=== PATIENT | female | born 1970 | race Hispanic/Latino ===

== ENCOUNTER 2018-02-06 06:03 | Day surgery (SDC) | payer MEDICAID, MEDICARE ==
[~2018-02-06] VITALS: Ht 157.5 cm; Wt 83.9 kg
[2018-02-06 06:44] VITALS: BP 120/74
[2018-02-06] MEDS ORDERED: LEFL10TA15 PO (07:14)
[2018-02-06] MEDS ORDERED: FOLI1TAB15 PO (07:14)
[2018-02-06] MEDS ORDERED: ESOM40CA PO (07:14)
[2018-02-06] MEDS ORDERED: METH25VI11 IJ (07:14)
[2018-02-06] MEDS ORDERED: TRAM50TA4 PO (07:14)
[2018-02-06] MEDS ORDERED: TYL3 PO (07:14)
[2018-02-06] MEDS ORDERED: GABA-529 PO (07:14)
[2018-02-06] MEDS ORDERED: ATEN50TA PO (07:14)
== END 2018-02-06 08:20 ==
LOC: ENDO 06:03 → DAH 06:03 → ENDO 08:20
PROVIDERS: ATTEND Internal Medicine Gastroenterology
DX: K80.50 Calculus of bile duct without cholangitis or cholecystitis without obstruction (principal); I10 Essential (primary) hypertension; Z86.73 Personal history of transient ischemic attack (TIA), and cerebral infarction without residual deficits; M06.9 Rheumatoid arthritis, unspecified; Z90.49 Acquired absence of other specified parts of digestive tract; Z90.710 Acquired absence of both cervix and uterus; Z98.890 Other specified postprocedural states; Z79.899 Other long term (current) drug therapy
CPT/HCPCS: 43259; A4606; 43231

== ENCOUNTER 2018-02-27 05:30 | Day surgery (SDC) | payer MEDICAID ==
[~2018-02-27] VITALS: Ht 157.5 cm; Wt 83.4 kg
[~2018-02-27 05:30] MED LIST: ATEN50TA PO; ESOM40CA PO; FOLI1TAB15 PO; GABA-529 PO; LEFL10TA15 PO; METH25VI11 IJ; TRAM50TA4 PO; TYL3 PO
[2018-02-27] MEDS ORDERED: SODIUM CHLORIDE 0.9% 1000ML 1,000 ML IV ONE (05:47)
[2018-02-27] MEDS ORDERED: ISOVUE-370 50ML VIAL IV ONE (07:27)
[2018-02-27 07:40] VITALS: BP 127/80
[2018-02-27] MEDS ORDERED: MIDAZOLAM HCL 1 MG/ML 2ML VIAL ONE (07:59)
[2018-02-27] MEDS ORDERED: FENTANYL CITRATE PF 50 MCG/1 ML 2ML VIAL ONE (07:59)
[2018-02-27] MEDS ORDERED: INDOMETHACIN 50 MG SUPP.RECT RC SCH (08:30)
== END 2018-02-27 09:40 | disposition home or self-care (01) ==
LOC: ENDO 05:30 → DAH 05:30 → ENDO 09:40
PROVIDERS: ATTEND Internal Medicine Gastroenterology
DX: K80.50 Calculus of bile duct without cholangitis or cholecystitis without obstruction (principal); Z79.899 Other long term (current) drug therapy; I10 Essential (primary) hypertension; Z86.73 Personal history of transient ischemic attack (TIA), and cerebral infarction without residual deficits; M06.9 Rheumatoid arthritis, unspecified; E07.9 Disorder of thyroid, unspecified; Z68.34 Body mass index [BMI] 34.0-34.9, adult; Z90.49 Acquired absence of other specified parts of digestive tract; Z90.710 Acquired absence of both cervix and uterus; Z98.890 Other specified postprocedural states; K59.09 Other constipation
CPT/HCPCS: 43262; 43264; 74330; A4606; C1769; C1773; J2250; J3010; J7030; Q9967

== ENCOUNTER 2018-02-28 16:33 | Inpatient (IN) | payer MEDICAID ==
[~2018-02-28] VITALS: Ht 157.5 cm; Wt 83.5 kg
[~2018-02-28 16:33] MED LIST changes: -GABA-529 PO; -LEFL10TA15 PO; -TRAM50TA4 PO; -TYL3 PO
[2018-02-28 17:33] LABS: BASOPHILS % (AUTO) 0.4 % (0.0-5.0); EOSINOPHILS % (AUTO) 1.9 % (0.0-8.0); HEMATOCRIT 32.4 % (36-48); LYMPHOCYTES % (AUTO) 17.2 % (21.0-51.0); MEAN CORPUSCULAR HGB CONC 33.8 g/dL (32.0-36.0); MEAN CORPUSCULAR VOLUME 91.7 fL (79-99); MONOCYTES % (AUTO) 7.7 % (3.0-13.0); NEUTROPHILS % (AUTO) 72.8 % (40.0-77.0); PLATELET COUNT (AUTO) 280 K/uL (130-400); RED BLOOD CELL COUNT(AUTO) 3.54 MIL/uL (4.00-5.50); RED CELL DISTRIBUTION WIDTH 14.1 % (11.0-15.5); WHITE BLOOD COUNT (AUTO) 8.8 K/uL (4.8-10.8)
[2018-02-28 17:45] LABS: CREATININE 0.6 mg/dL (0.5-1.5); INR 0.92 (0.85-1.15); PARTIAL THROMBOPLASTIN TIME 28.1 SEC (26.3-35.5); POTASSIUM 4.2 mmol/L (3.5-5.1); PROTHROMBIN TIME 9.7 SEC (9.6-11.6)
[2018-02-28 17:50] LABS: ALBUMIN 3.1 g/dL (3.5-5.0); BILIRUBIN,TOTAL 0.3 mg/dL (0.2-1.0); TOTAL PROTEIN, SERUM 7.5 g/dL (6.0-8.3)
[2018-02-28] MEDS ORDERED: DIAZEPAM 5 MG TABLET ONE (18:18)
[2018-02-28] MEDS ORDERED: SODIUM CHLORIDE 0.9% 1000ML 2,000 ML IV ONE (18:57)
[2018-02-28] MEDS ORDERED: MORPHINE SULFATE 4 MG/1ML SYG ONE ×2 (18:57→23:33)
[2018-02-28] MEDS ORDERED: ONDANSETRON HCL MDV 20ML 2 MG/ML VIAL ONE (18:57)
[2018-02-28 19:08] LABS: CREATINE KINASE MB < 0.5 ng/mL (0.5-3.6); CREATINE KINASE, TOTAL 64 U/L (21-232)
[2018-03-01] MEDS ORDERED: ONDANSETRON HCL MDV 20ML 2 MG/ML VIAL ONE (01:48)
[2018-03-01 06:42] LABS: CHOLESTEROL 128 mg/dL (<200); HDL CHOLESTEROL 59 mg/dL (35-85); LDL DIRECT 61 mg/dL (0-99); TRIGLYCERIDES 33 mg/dL (30-200)
[2018-03-01] MEDS ORDERED: ACETAMINOPHEN 325 MG TAB ONE (10:35)
[2018-03-01] MEDS ORDERED: SODIUM CHLORIDE 0.9% 1000ML 1,000 ML IV ONE (11:27)
[2018-03-01] MEDS ORDERED: MORPHINE SULFATE 4 MG/1ML SYG ONE (12:46)
[2018-03-01 19:52] VITALS: BP 137/69
[2018-03-01] MEDS: MORPHINE SULFATE 4 MG/1ML SYG IVP PRN (20:54)
[2018-03-01] MEDS: SODIUM CHLORIDE 0.9% 1000ML 1,000 ML IV SCH (20:58)
[2018-03-01] MEDS ORDERED: ONDANSETRON HCL 4 MG/2 ML VIAL IVP PRN (21:00)
[2018-03-01] MEDS ORDERED: GABA-529 PO (22:22)
[2018-03-01] MEDS ORDERED: ERGO500014 PO (22:22)
[2018-03-01] MEDS ORDERED: LEFL10TA15 PO (22:22)
[2018-03-01] MEDS ORDERED: METH25VI17 SQ (22:37)
[2018-03-01 23:25] VITALS: BP 118/67
[2018-03-01] MEDS ORDERED: FAMOTIDINE/PF 20 MG/2 ML VIAL IV ONE (23:54)
[2018-03-02] MEDS: SODIUM CHLORIDE 0.9% 1000ML 1,000 ML IV SCH ×3 (00:46→13:15)
[2018-03-02 03:30] VITALS: BP 129/68
[2018-03-02 05:28] LABS: BASOPHILS % (AUTO) 0.4 % (0.0-5.0); EOSINOPHILS % (AUTO) 3.3 % (0.0-8.0); HEMATOCRIT 29.1 % (36-48); LYMPHOCYTES % (AUTO) 26.8 % (21.0-51.0); MEAN CORPUSCULAR HEMOGLOBIN 31.6 pg (27.0-33.0); MEAN CORPUSCULAR HGB CONC 34.8 g/dL (32.0-36.0); MEAN CORPUSCULAR VOLUME 90.8 fL (79-99); MONOCYTES % (AUTO) 7.7 % (3.0-13.0); NEUTROPHILS % (AUTO) 61.8 % (40.0-77.0); PLATELET COUNT (AUTO) 255 K/uL (130-400); RED BLOOD CELL COUNT(AUTO) 3.21 MIL/uL (4.00-5.50); RED CELL DISTRIBUTION WIDTH 14.1 % (11.0-15.5); WHITE BLOOD COUNT (AUTO) 6.5 K/uL (4.8-10.8)
[2018-03-02 05:45] LABS: CREATININE 0.5 mg/dL (0.5-1.5); MAGNESIUM 1.9 mg/dL (1.80-2.40)
[2018-03-02 07:54] VITALS: BP 130/73
[2018-03-02] MEDS ORDERED: PANTOPRAZOLE SODIUM 40 MG TABLET.DR PO SCH (09:00)
[2018-03-02] MEDS ORDERED: FAMOTIDINE/PF 20 MG/2 ML VIAL IV SCH (09:00)
[2018-03-02 12:11] VITALS: BP 138/76
[2018-03-02] MEDS: MORPHINE SULFATE 4 MG/1ML SYG IVP PRN (13:10)
[2018-03-02 16:14] VITALS: BP 139/67
[2018-03-02 19:40] VITALS: BP 136/71
[2018-03-02] MEDS: FAMOTIDINE/PF 20 MG/2 ML VIAL IV SCH (21:33)
[2018-03-03 00:10] VITALS: BP 152/79
[2018-03-03 03:15] VITALS: BP 152/70
[2018-03-03 05:05] LABS: BASOPHILS % (AUTO) 0.5 % (0.0-5.0); EOSINOPHILS % (AUTO) 2.4 % (0.0-8.0); HEMATOCRIT 32.3 % (36-48); LYMPHOCYTES % (AUTO) 24.5 % (21.0-51.0); MEAN CORPUSCULAR HEMOGLOBIN 30.4 pg (27.0-33.0); MEAN CORPUSCULAR HGB CONC 33.6 g/dL (32.0-36.0); MEAN CORPUSCULAR VOLUME 90.4 fL (79-99); MONOCYTES % (AUTO) 8.8 % (3.0-13.0); NEUTROPHILS % (AUTO) 63.8 % (40.0-77.0); PLATELET COUNT (AUTO) 277 K/uL (130-400); RED BLOOD CELL COUNT(AUTO) 3.57 MIL/uL (4.00-5.50); RED CELL DISTRIBUTION WIDTH 13.8 % (11.0-15.5); WHITE BLOOD COUNT (AUTO) 6.8 K/uL (4.8-10.8)
[2018-03-03 05:18] LABS: CREATININE 0.6 mg/dL (0.5-1.5); POTASSIUM 4.2 mmol/L (3.5-5.1)
[2018-03-03 08:00] VITALS: BP 152/71
[2018-03-03] MEDS: FAMOTIDINE/PF 20 MG/2 ML VIAL IV SCH ×2 (08:40→20:27)
[2018-03-03] MEDS: CLINIMIX E 4.25%-5% SOLUTION 2,000 ML IV SCH (10:00)
[2018-03-03 11:52] VITALS: BP 146/69
[2018-03-03 16:00] VITALS: BP 150/79
[2018-03-03 20:21] VITALS: BP 133/82
[2018-03-04 00:15] VITALS: BP 128/67
[2018-03-04 04:15] VITALS: BP 123/72
[2018-03-04 06:01] LABS: BASOPHILS % (AUTO) 0.4 % (0.0-5.0); EOSINOPHILS % (AUTO) 2.8 % (0.0-8.0); HEMATOCRIT 33.8 % (36-48); LYMPHOCYTES % (AUTO) 27.3 % (21.0-51.0); MEAN CORPUSCULAR HEMOGLOBIN 30.3 pg (27.0-33.0); MEAN CORPUSCULAR HGB CONC 33.6 g/dL (32.0-36.0); MEAN CORPUSCULAR VOLUME 90.1 fL (79-99); MONOCYTES % (AUTO) 9.5 % (3.0-13.0); PLATELET COUNT (AUTO) 322 K/uL (130-400); RED BLOOD CELL COUNT(AUTO) 3.75 MIL/uL (4.00-5.50); WHITE BLOOD COUNT (AUTO) 6.6 K/uL (4.8-10.8)
[2018-03-04 06:13] LABS: CREATININE 0.6 mg/dL (0.5-1.5); POTASSIUM 3.7 mmol/L (3.5-5.1)
[2018-03-04 07:39] VITALS: BP 125/72
[2018-03-04] MEDS: FAMOTIDINE/PF 20 MG/2 ML VIAL IV SCH ×2 (08:28→21:13)
[2018-03-04] MEDS: CLINIMIX E 4.25%-5% SOLUTION 2,000 ML IV SCH (09:30)
[2018-03-04 11:12] VITALS: BP 119/74
[2018-03-04] MEDS ORDERED: IOPAMIDOL-370 75 ML VIAL IV ONE (11:28)
[2018-03-04] MEDS ORDERED: DIATR MEGLU/DIATRIZOATE SODIUM 30 ML BOTTLE ONE (11:29)
[2018-03-04 16:00] VITALS: BP 129/83
[2018-03-04 19:30] VITALS: BP 121/76
[2018-03-05] VITALS (7 sets, daily range): BP systolic 113–128; BP diastolic 69–84
[2018-03-05] MEDS: FAMOTIDINE/PF 20 MG/2 ML VIAL IV SCH ×2 (10:11→20:07)
[2018-03-05] MEDS ORDERED: GADOBENATE DIMEGLUMINE 20 ML IV ONE (10:46)
[2018-03-05 11:14] LABS: ALBUMIN 3.3 g/dL (3.5-5.0); BILIRUBIN,DIRECT 0.1 mg/dL (0.0-0.3); BILIRUBIN,TOTAL 0.2 mg/dL (0.2-1.0); TOTAL PROTEIN, SERUM 8.1 g/dL (6.0-8.3)
[2018-03-05] MEDS: CLINIMIX E 4.25%-5% SOLUTION 2,000 ML IV SCH (14:04)
[2018-03-06] VITALS (15 sets, daily range): BP systolic 103–143; BP diastolic 60–87
[2018-03-06 05:22] LABS: BASOPHILS % (AUTO) 0.4 % (0.0-5.0); EOSINOPHILS % (AUTO) 3.5 % (0.0-8.0); HEMATOCRIT 34.6 % (36-48); LYMPHOCYTES % (AUTO) 31.2 % (21.0-51.0); MEAN CORPUSCULAR HEMOGLOBIN 30.8 pg (27.0-33.0); MEAN CORPUSCULAR HGB CONC 34.1 g/dL (32.0-36.0); MEAN CORPUSCULAR VOLUME 90.4 fL (79-99); MONOCYTES % (AUTO) 10.4 % (3.0-13.0); NEUTROPHILS % (AUTO) 54.5 % (40.0-77.0); PLATELET COUNT (AUTO) 343 K/uL (130-400); RED BLOOD CELL COUNT(AUTO) 3.82 MIL/uL (4.00-5.50); RED CELL DISTRIBUTION WIDTH 14.2 % (11.0-15.5)
[2018-03-06 06:01] LABS: CREATININE 0.6 mg/dL (0.5-1.5); POTASSIUM 4.1 mmol/L (3.5-5.1)
[2018-03-06] MEDS: FAMOTIDINE/PF 20 MG/2 ML VIAL IV SCH ×2 (09:05→20:17)
[2018-03-06] MEDS ORDERED: PROPOFOL 10 MG/ML 20ML VIAL IV ONE (12:29)
[2018-03-07 04:18] VITALS: BP 109/68
[2018-03-07 05:26] LABS: BASOPHILS % (AUTO) 0.3 % (0.0-5.0); EOSINOPHILS % (AUTO) 2.9 % (0.0-8.0); HEMATOCRIT 34.1 % (36-48); LYMPHOCYTES % (AUTO) 31.9 % (21.0-51.0); MEAN CORPUSCULAR HEMOGLOBIN 30.4 pg (27.0-33.0); MEAN CORPUSCULAR HGB CONC 33.7 g/dL (32.0-36.0); MEAN CORPUSCULAR VOLUME 90.1 fL (79-99); MONOCYTES % (AUTO) 9.7 % (3.0-13.0); NEUTROPHILS % (AUTO) 55.2 % (40.0-77.0); PLATELET COUNT (AUTO) 324 K/uL (130-400); RED BLOOD CELL COUNT(AUTO) 3.79 MIL/uL (4.00-5.50); RED CELL DISTRIBUTION WIDTH 14.1 % (11.0-15.5); WHITE BLOOD COUNT (AUTO) 6.3 K/uL (4.8-10.8)
[2018-03-07 05:45] LABS: ALBUMIN 3.2 g/dL (3.5-5.0); BILIRUBIN,TOTAL 0.4 mg/dL (0.2-1.0); CREATININE 0.6 mg/dL (0.5-1.5); POTASSIUM 4.4 mmol/L (3.5-5.1); TOTAL PROTEIN, SERUM 7.5 g/dL (6.0-8.3)
[2018-03-07 08:00] VITALS: BP 118/67
[2018-03-07] MEDS: FAMOTIDINE/PF 20 MG/2 ML VIAL IV SCH ×2 (08:52→20:13)
[2018-03-07 11:00] VITALS: BP 103/66
[2018-03-07 16:00] VITALS: BP 120/77
[2018-03-07 20:15] VITALS: BP 117/76
[2018-03-07] MEDS: ONDANSETRON HCL MDV 20ML 2 MG/ML VIAL IVP PRN (20:17)
[2018-03-08 00:15] VITALS: BP 106/71
[2018-03-08 04:15] VITALS: BP 105/63
[2018-03-08 05:04] LABS: BASOPHILS % (AUTO) 0.5 % (0.0-5.0); EOSINOPHILS % (AUTO) 3.2 % (0.0-8.0); HEMATOCRIT 32.7 % (36-48); MEAN CORPUSCULAR HEMOGLOBIN 31.3 pg (27.0-33.0); MEAN CORPUSCULAR HGB CONC 34.8 g/dL (32.0-36.0); MEAN CORPUSCULAR VOLUME 89.9 fL (79-99); MONOCYTES % (AUTO) 9.8 % (3.0-13.0); NEUTROPHILS % (AUTO) 47.5 % (40.0-77.0); NUCLEATED RED BLOOD CELLS 0.1 % (0.0-0.19); PLATELET COUNT (AUTO) 329 K/uL (130-400); RED BLOOD CELL COUNT(AUTO) 3.64 MIL/uL (4.00-5.50); RED CELL DISTRIBUTION WIDTH 14.2 % (11.0-15.5); WHITE BLOOD COUNT (AUTO) 5.7 K/uL (4.8-10.8)
[2018-03-08 05:33] LABS: CREATININE 0.6 mg/dL (0.5-1.5); POTASSIUM 4.1 mmol/L (3.5-5.1)
[2018-03-08 08:01] VITALS: BP 103/69
[2018-03-08] MEDS: FAMOTIDINE/PF 20 MG/2 ML VIAL IV SCH ×2 (08:42→19:26)
[2018-03-08 11:30] VITALS: BP 118/77
[2018-03-08] MEDS ORDERED: CLINIMIX E 4.25%-5% SOLUTION 2,000 ML IV SCH (12:02)
[2018-03-08 15:55] VITALS: BP 120/79
[2018-03-08 20:18] VITALS: BP 121/82
[2018-03-09 00:06] VITALS: BP 107/66
[2018-03-09 04:12] VITALS: BP 102/67
[2018-03-09 05:30] LABS: BASOPHILS % (AUTO) 0.4 % (0.0-5.0); EOSINOPHILS % (AUTO) 2.9 % (0.0-8.0); HEMATOCRIT 33.7 % (36-48); LYMPHOCYTES % (AUTO) 35.3 % (21.0-51.0); MEAN CORPUSCULAR HEMOGLOBIN 30.5 pg (27.0-33.0); MEAN CORPUSCULAR HGB CONC 33.9 g/dL (32.0-36.0); MEAN CORPUSCULAR VOLUME 89.9 fL (79-99); MONOCYTES % (AUTO) 11.1 % (3.0-13.0); NEUTROPHILS % (AUTO) 50.3 % (40.0-77.0); PLATELET COUNT (AUTO) 336 K/uL (130-400); RED BLOOD CELL COUNT(AUTO) 3.75 MIL/uL (4.00-5.50); WHITE BLOOD COUNT (AUTO) 6.3 K/uL (4.8-10.8)
[2018-03-09 05:44] LABS: CREATININE 0.7 mg/dL (0.5-1.5); POTASSIUM 4.5 mmol/L (3.5-5.1)
[2018-03-09 07:47] VITALS: BP 108/71
[2018-03-09] MEDS: FAMOTIDINE/PF 20 MG/2 ML VIAL IV SCH ×2 (08:25→21:15)
[2018-03-09] MEDS: ONDANSETRON HCL MDV 20ML 2 MG/ML VIAL IVP PRN ×2 (09:29→14:23)
[2018-03-09] MEDS: ACETAMINOPHEN 325 MG TAB PO PRN ×3 (09:30→18:02)
[2018-03-09 12:00] VITALS: BP 108/83
[2018-03-09] MEDS ORDERED: ONDANSETRON HCL 4 MG/2 ML VIAL IVP PRN (14:30)
[2018-03-09 16:00] VITALS: BP 123/77
[2018-03-09 20:09] VITALS: BP 118/65
[2018-03-10] VITALS: BP 121/58
[2018-03-10 04:00] VITALS: BP 107/60
[2018-03-10 06:07] LABS: BASOPHILS % (AUTO) 0.4 % (0.0-5.0); EOSINOPHILS % (AUTO) 3.7 % (0.0-8.0); HEMATOCRIT 33.6 % (36-48); LYMPHOCYTES % (AUTO) 44.7 % (21.0-51.0); MEAN CORPUSCULAR HEMOGLOBIN 30.7 pg (27.0-33.0); MEAN CORPUSCULAR VOLUME 90.3 fL (79-99); MONOCYTES % (AUTO) 10.9 % (3.0-13.0); NEUTROPHILS % (AUTO) 40.3 % (40.0-77.0); PLATELET COUNT (AUTO) 301 K/uL (130-400); RED BLOOD CELL COUNT(AUTO) 3.72 MIL/uL (4.00-5.50)
[2018-03-10 06:14] LABS: CREATININE 0.7 mg/dL (0.5-1.5); POTASSIUM 4.2 mmol/L (3.5-5.1)
[2018-03-10 08:00] VITALS: BP 103/68
[2018-03-10] MEDS: FAMOTIDINE/PF 20 MG/2 ML VIAL IV SCH (10:01)
[2018-03-10 11:00] VITALS: BP 115/75
[2018-03-10 16:00] VITALS: BP 119/77
== END 2018-03-10 19:35 | disposition home or self-care (01) | DRG 282 ==
LOC: EDH 16:33 → EDHIP 16:34 → 4BH 03-01 19:52
PROVIDERS: ADMIT Family Medicine; ATTEND Family Medicine
PROC: 0DJ08ZZ Inspection of Upper Intestinal Tract, Via Natural or Artificial Opening Endoscopic (ICD-10-PCS; principal; 2018-03-06)
DX: K85.90 Acute pancreatitis without necrosis or infection, unspecified (principal); E66.9 Obesity, unspecified; I10 Essential (primary) hypertension; M06.9 Rheumatoid arthritis, unspecified; Z68.33 Body mass index [BMI] 33.0-33.9, adult; Z88.1 Allergy status to other antibiotic agents; Z90.710 Acquired absence of both cervix and uterus; Z86.73 Personal history of transient ischemic attack (TIA), and cerebral infarction without residual deficits; Z82.49 Family history of ischemic heart disease and other diseases of the circulatory system; Z83.3 Family history of diabetes mellitus
CPT/HCPCS: 36415; 43231; 71045; 74160; 74183; 74330; 80048; 80053; 80061; 80076; 82150; 82550; 82553; 82948; 83690; 83735; 84484; 85025; 85610; 85730; 93005; A4606; A9577; C1769; C1773; C9113; J2250; J2270; J2405; J2704; J3010; J3490; J7030; Q9963; Q9967